=== PATIENT | female | born 1990 | race Caucasian/White ===

== ENCOUNTER 2018-05-10 13:30 | Emergency (ER) | payer BC, OTHER ==
[~2018-05-10] VITALS: Ht 180.3 cm; Wt 60.8 kg
[2018-05-10] MEDS ORDERED: NS IV 1000 ML 1,000 ML ONE (14:20)
[2018-05-10 14:30] LABS: BASOPHILS % (AUTO) 1 % (0-10); EOSINOPHILS % (AUTO) 1 % (0-10); HEMATOCRIT 42 % (35-52); HEMOGLOBIN 13.3 G/DL (11.5-16.0); LYMPHOCYTES # (AUTO) 2.2 X 10^3 (1.0-4.0); LYMPHOCYTES % (AUTO) 33 % (12-44); MEAN CORPUSCULAR HEMOGLOBIN 27 PG (25-34); MEAN CORPUSCULAR HGB CONC 32 G/DL (32-36); MEAN CORPUSCULAR VOLUME 83 FL (80-99); MEAN PLATELET VOLUME 9.6 FL (7.4-10.4); MONOCYTES # (AUTO) 0.6 X 10^3 (0.0-1.0); MONOCYTES % (AUTO) 8 % (0-12); NEUTROPHILS % (AUTO) 58 % (42-75); PLATELET COUNT 273 10^3/uL (130-400); RED BLOOD COUNT 4.99 10^6/uL (4.35-5.85); RED CELL DISTRIBUTION WIDTH 14.7 % (10.0-14.5); WHITE BLOOD COUNT 6.9 10^3/uL (4.3-11.0)
[2018-05-10] MEDS ORDERED: NS IV 1000 ML 1,000 ML IV SCH (14:30)
[2018-05-10 14:32] LABS: BILIRUBIN,URINE NEGATIVE (NEGATIVE); CLARITY,URINE CLEAR; COLOR,URINE YELLOW; GLUCOSE, URINE (UA) NEGATIVE (NEGATIVE); KETONES,URINE NEGATIVE (NEGATIVE); LEUKOCYTE ESTERASE ,URINE NEGATIVE (NEGATIVE); NITRITE,URINE NEGATIVE (NEGATIVE); PH,URINE 6 (5-9); PROTEIN,URINE NEGATIVE (NEGATIVE); UROBILINOGEN,URINE NORMAL (NORMAL)
[2018-05-10] MEDS ORDERED: PNV1TABL81 PO (14:36)
[2018-05-10] MEDS ORDERED: fentaNYL INJECTION 100 MCG/2 ML AMP IVP STA (14:38)
[2018-05-10 14:40] LABS: BACTERIA,URINE NEGATIVE /HPF; RBC,URINE 0-2 /HPF; SQUAMOUS EPITHELIAL CELL,UR 0-2 /HPF
[2018-05-10 14:52] LABS: ALANINE AMINOTRANSFERASE 19 U/L (0-55); ALBUMIN 4.9 GM/DL (3.2-4.5); ALKALINE PHOSPHATASE 41 U/L (40-136); BILIRUBIN,TOTAL 0.7 MG/DL (0.1-1.0); BUN/CREATININE RATIO 8; CALCIUM 9.8 MG/DL (8.5-10.1); CARBON DIOXIDE 24 MMOL/L (21-32); CHLORIDE 107 MMOL/L (98-107); CREATININE SERUM 0.78 MG/DL (0.60-1.30); GFR ESTIMATED > 60; GLUCOSE 82 MG/DL (70-105); POTASSIUM 3.6 MMOL/L (3.6-5.0); SODIUM 140 MMOL/L (135-145); TOTAL PROTEIN 8.7 GM/DL (6.4-8.2)
--- NOTE | 2018-05-10 15:14 | ED GU-Female ---
General Chief Complaint: -Female Stated Complaint: POSS MISCARRIAGE Nursing Triage Note: AMBULATED TO ROOM VIA AMB WITHOUT DIFFICULTY. STATES SHE HAS HAD SOME SPOTTING AND ABD CRAMPING STARTING YESTERDAY. STATES SHE IS -6 WEEKS GESTATION. Nursing Sepsis Screen: No Definite Risk Source: patient Exam Limitations: no limitations History of Present Illness Date Seen by Provider: May 10, 2018 Time Seen by Provider: 14:25 Initial Comments Here with report of vaginal bleeding starting yesterday. She has been through 1 pad today. Believes that she is about 6 weeks due to missed. At the end of March. She had positive test on April 28. This is her first . She arrives with no significant cramping that she has never experienced before. Mild bleeding. Denies vaginal discharge. Previously had IUD and have that removed in the February. noted at the end of March. Timing/Duration: yesterday, getting worse Severity/Quality: moderate, cramping Location: suprapubic, vaginal Radiation: RLQ, LLQ, back Activities at Onset: none Prior Genitourinary Problems: none Sexual Garnett History: less than 2 months ago Modifying Factors: Worsens With Resting Associated Symptoms: abdominal pain; No fever/chills, No nausea/vomiting, No urinary frequency Allergies and Home Medications Allergies Coded Allergies: No Known Drug Allergies (Unverified , 05/10/18) Patient Home Medication List Home Medication List Reviewed: Yes Review of Systems Constitutional: see HPI; No chills, No fever Respiratory: no symptoms reported Cardiovascular: no symptoms reported Gastrointestinal: see HPI, abdominal pain; No nausea, No vomiting Genitourinary: see HPI : Yes LMP: Mar 25, 2018 Musculoskeletal: no symptoms reported Psychiatric/Neurological: Anxiety; Denies Weakness Past Upykwdz-Tiivgl-Umssyn Hx Past Med/Social Hx: Reviewed Nursing Past Med/Soc Hx Patient Social History Alcohol Use: Denies Use Recreational Drug Use: No Smoking Status: Never a Smoker Recent Foreign Travel: No Contact w/Someone Who Travel: No Recent Infectious Disease Expo: No Recent Hopitalizations: No Past Medical History Surgeries: Yes (HERNIA) Respiratory: No Cardiac: No Neurological: No : Yes Last Menstrual Period: Mar 23, 2018 Gastrointestinal: No Musculoskeletal: No Endocrine: No HEENT: No Cancer: No Psychosocial: No Family Medical History Reviewed Nursing Family Hx Physical Exam Vital Signs Vital Signs - First Documented 05/10/18 14:28 Temp 98.0 Pulse 59 Resp 16 B/P (MAP) 126/86 (99) Pulse Ox 100 O2 Delivery Room Air Capillary Refill : Less Than 3 Seconds Height, Weight, BMI Height: 5'11.00" Weight: 134lbs. oz. 60.880493bd; BMI Method:Stated General Appearance: WD/WN, no apparent distress HEENT: PERRL/EOMI, pharynx normal Neck: full range of motion, supple Cardiovascular: regular rate, rhythm, no murmur, bradycardia Respiratory: lungs clear, normal breath sounds Gastrointestinal: soft, tenderness (lower abdomen) Back: normal inspection, no CVA tenderness, no vertebral tenderness Extremities: non-tender, normal inspection Neurologic/Psychiatric: alert, oriented x 3 Skin: normal color, warm/dry Progress/Results/Core Measures Suspected Sepsis Recent Fever Within 48 Hours: No Infection Criteria Present: None New/Unexplained Altered Menta: No Sepsis Screen: No Definite Risk SIRS Temperature:98.0 Pulse: 59 Respiratory Rate: 16 Laboratory Tests 05/10/18 14:15: White Blood Count 6.9 Blood Pressure 126 /86 Mean: 99 Laboratory Tests 05/10/18 14:15: Creatinine 0.78, Platelet Count 273, Total Bilirubin 0.7 Results/Orders Lab Results Laboratory Tests Test 05/10/18 14:10 05/10/18 14:15 Range/Units Urine Color YELLOW Urine Clarity CLEAR Urine pH 6 5-9 Urine Specific [place] 1.010 L 1.016-1.022 Urine Protein NEGATIVE NEGATIVE Urine Glucose (UA) NEGATIVE NEGATIVE Urine Ketones NEGATIVE NEGATIVE Urine Nitrite NEGATIVE NEGATIVE Urine Bilirubin NEGATIVE NEGATIVE Urine Urobilinogen NORMAL NORMAL MG/DL Urine Leukocyte Esterase NEGATIVE NEGATIVE Urine RBC (Auto) 5+ H NEGATIVE Urine RBC 0-2 /HPF Urine WBC NONE /HPF Urine Squamous Epithelial Cells 0-2 /HPF Urine Crystals NONE /LPF Urine Bacteria NEGATIVE /HPF Urine Casts NONE /LPF Urine Mucus NEGATIVE /LPF Urine Culture Indicated NO White Blood Count 6.9 4.3-11.0 10^3/uL Red Blood Count 4.99 4.35-5.85 10^6/uL Hemoglobin 13.3 11.5-16.0 G/DL Hematocrit 42 35-52 % Mean Corpuscular Volume 83 80-99 FL Mean Corpuscular Hemoglobin 27 25-34 PG Mean Corpuscular Hemoglobin Concent 32 32-36 G/DL Red Cell Distribution Width 14.7 H 10.0-14.5 % Platelet Count 273 130-400 10^3/uL Mean Platelet Volume 9.6 7.4-10.4 FL Neutrophils (%) (Auto) 58 42-75 % Lymphocytes (%) (Auto) 33 12-44 % Monocytes (%) (Auto) 8 0-12 % Eosinophils (%) (Auto) 1 0-10 % Basophils (%) (Auto) 1 0-10 % Neutrophils # (Auto) 4.0 1.8-7.8 X 10^3 Lymphocytes # (Auto) 2.2 1.0-4.0 X 10^3 Monocytes # (Auto) 0.6 0.0-1.0 X 10^3 Eosinophils # (Auto) 0.0 0.0-0.3 10^3/uL Basophils # (Auto) 0.0 0.0-0.1 10^3/uL Sodium Level 140 135-145 MMOL/L Potassium Level 3.6 3.6-5.0 MMOL/L Chloride Level 107 98-107 MMOL/L Carbon Dioxide Level 24 21-32 MMOL/L Anion Gap 9 5-14 MMOL/L Blood Urea Nitrogen 6 L 7-18 MG/DL Creatinine 0.78 0.60-1.30 MG/DL Estimat Glomerular Filtration Rate > 60 BUN/Creatinine Ratio 8 Glucose Level 82 70-105 MG/DL Calcium Level 9.8 8.5-10.1 MG/DL Corrected Calcium 8.5-10.1 MG/DL Total Bilirubin 0.7 0.1-1.0 MG/DL Aspartate Amino Transf (AST/SGOT) 20 5-34 U/L Alanine Aminotransferase (ALT/SGPT) 19 0-55 U/L Alkaline Phosphatase 41 40-136 U/L Total Protein 8.7 H 6.4-8.2 GM/DL Albumin 4.9 H 3.2-4.5 GM/DL Human Chorionic Gonadotropin, Quant 470 H <5 MIU/ML My Orders Orders - JENNIFER CERON MD Iv 1000 Ml (Sodium Chloride 0.9%) (05/10/18 14:20) Fentanyl Injection (Sublimaze Injection (05/10/18 14:38) Vital Signs/I&O 05/10/18 14:28 Temp 98.0 Pulse 59 Resp 16 B/P (MAP) 126/86 (99) Pulse Ox 100 O2 Delivery Room Air Capillary Refill : Less Than 3 Seconds Blood Pressure Mean: 99 Progress Note : Progress Note Seen and evaluated. IV, labs, ultrasound pelvis ordered. Normal saline 1 L bolus as patient became hypotensive with IV start. Fentanyl 50 g IV ordered. This did significantly help with her pain. Ultrasound complete. 1540: I have discussed the results with the patient. This is likely miscarriage given the amount of bleeding and tissue that she's had that she is describing now. She will need follow-up and this was discussed with her. She will need repeat Quant level to ensure that the clot level was going down. I will send a copy of the chart to Dr. Chowdhury. Go pack of hydrocodone given. Discharged home with return precautions. Patient and family verbalize understanding instructions and agreement with plan. Diagnostic Imaging Diagonstic Imaging: Ultrasound Plain Films/CT/US/NM/MRI: pelvis Comments NAME: NIMCO CHAN [facility] REC#: [id number] PT STATUS: REG ER : 1990 PHYSICIAN: KENJI MICHAELS GASKET FORMER ADMIT DATE: 05/10/18/ER Signed Date of Exam: 05/10/18 US OB TRANSVAGINAL [id number] INDICATION: Vaginal bleeding, pelvic pain, cramping. COMPARISON: None. EXAMINATION: Transvaginal ultrasound images were obtained. FINDINGS: The shape and contour of the uterus appears normal. The endometrium is 9 mm. There is no intrauterine or extrauterine gestation. The right ovary measures 21 x 29 x 34 mm, the left 22 x 18 x 18 mm. There is no suspicious mass or cyst. There is no free fluid. IMPRESSION: 1. No intrauterine or extrauterine gestation. If the patient has a positive test please exclude ectopic on a clinical basis. Obtain followup. 2. No adnexal mass or free fluid. Dictated by: Dictated on workstation # [id number] Dict: 05/10/18 1512 Trans: 05/10/18 1520 Interpreted by: KHOI ORTIZ Electronically signed by: KHOI ORTIZ 05/10/18 1520 Departure Impression Primary Impression: Spontaneous miscarriage Disposition: 01 HOME, SELF-CARE Condition: Stable Departure-Patient Inst. Decision time for Depature: 15:46 Referrals: MACO CHOWDHURY MD Patient Instructions: Miscarriage (DC) Add. Discharge Instructions: All discharge instructions reviewed with patient and/or family. Voiced understanding. You may take ibuprofen 600 mg every 8 hours as needed for pain. Take other pain medicine as prescribed. You may take Tylenol/acetaminophen 1000 mg every 8 hours as needed for pain if you're not taking the prescribed pain medicine. Do not take both at the same time as they both have acetaminophen in them. Follow-up with Dr. Chowdhury in a few days for recheck. Call his office in the morning. You will need repeat beta hCG level in 2-3 days. Return for worse pain, fever, vomiting, weakness, breathing problems or other concerns as needed. Copy Copies To 1: MACO CHOWDHURY MD, TIMOTHY D MD May 10, 2018 15:14
--- NOTE | 2018-05-10 15:19 | Diagnostic Imaging Report ---
INDICATION: Vaginal bleeding, pelvic pain, cramping. COMPARISON: None. EXAMINATION: Transvaginal ultrasound images were obtained. FINDINGS: The shape and contour of the uterus appears normal. The endometrium is 9 mm. There is no intrauterine or extrauterine gestation. The right ovary measures 21 x 29 x 34 mm, the left 22 x 18 x 18 mm. There is no suspicious mass or cyst. There is no free fluid. IMPRESSION: 1. No intrauterine or extrauterine gestation. If the patient has a positive test please exclude ectopic on a clinical basis. Obtain followup. 2. No adnexal mass or free fluid. Dictated by: Dictated on workstation # [id number]
[2018-05-10] MEDS ORDERED: RX-HYDROCODONE/APAP 5/325 MG #4 TAB PK PO PRN (16:00)
[2018-05-10 16:10] VITALS: BP 114/76
== END 2018-05-10 16:10 | disposition home or self-care (01) ==
LOC: ER 13:32
DX: O03.9 Complete or unspecified spontaneous abortion without complication (principal); Z98.890 Other specified postprocedural states
CPT/HCPCS: 36415; 76817; 80053; 81000; 84702; 85025; 86900; 86901

== ENCOUNTER → 2019-01-13 | Outpatient (CLI) | payer BC ==
[~2019-01-13] MED LIST: PNV1TABL81 PO
--- NOTE | 2019-01-14 15:12 | Physician Query-Final Dx ---
SARMAD HOGUE 01/14/19 1512: Clinic Account Progress/Dx Physician Query: Please give diagnosis Stool culture Date of Service Jan 13, 2019 at 15:44 MACO AC MD 01/15/19 0744: Clinic Account Progress/Dx DIAGNOSIS: Diagnosis Chronic diarrhea SARMAD HOGUE Jan 14, 2019 15:12 MACO AC MD Jan 15, 2019 07:44
== END ==
LOC: LAB 15:44
PROVIDERS: ATTEND Obstetrics & Gynecology
DX: K52.9 Noninfective gastroenteritis and colitis, unspecified (principal)
CPT/HCPCS: 87015; 87045; 87046; 87328; 87329; 87899

== ENCOUNTER 2019-07-30 09:39 | Inpatient (IN) | payer BC ==
[~2019-07-30] VITALS: Ht 180.3 cm; Wt 80.1 kg
[2019-07-30] VITALS (7 sets, daily range): BP systolic 89–123; BP diastolic 60–98
--- NOTE | 2019-07-30 09:31 | NUR ---
NIMCO CHAN presented to unit via ambulatory from dr lafleur's office, accompanied by , for PRIMARY . Per Dr lafleur, Pt is dilated 5 cm and breech presentation. NIMCO CHAN weighed, gowned, voided, and to bed. EFHM and TOCO applied, VS taken. NIMCO CHAN oriented to bed controls, call light, TV, heat, and A/C controls. This RN prepares pt for surgery.
[2019-07-30] MEDS ORDERED: CITRIC ACID/SOB CIT (BICITRA) 30 ML UDC PO ONE ×2 (10:00→11:45)
[2019-07-30] MEDS ORDERED: metroNIDAZOLE 500MG/100ML IVPB 100 ML IV NR ×2 (10:00→12:00)
[2019-07-30] MEDS ORDERED: CATHETER FLUSH 10 ML SYR IV PRN (10:00)
[2019-07-30] MEDS ORDERED: ceFAZolin 2 GM IV Premixed 50 ML IV NR ×2 (10:00→12:00)
[2019-07-30] MEDS ORDERED: FAMOTIDINE 20MG/2ML IV (PEPCID) IV ONE ×2 (10:00→11:45)
[2019-07-30] MEDS: LACTATED RINGERS 1,000 ML IV PRN ×2 (10:00→11:09)
[2019-07-30] MEDS ORDERED: METOCLOPRAMIDE INJ 10 MG/2 ML (REGLAN) IV ONE ×2 (10:00→11:45)
[2019-07-30 10:44] LABS: BASOPHILS % (AUTO) 0 % (0-10); EOSINOPHILS % (AUTO) 0 % (0-10); HEMATOCRIT 36 % (35-52); HEMOGLOBIN 12.2 G/DL (11.5-16.0); LYMPHOCYTES # (AUTO) 1.3 X 10^3 (1.0-4.0); LYMPHOCYTES % (AUTO) 14 % (12-44); MEAN CORPUSCULAR HEMOGLOBIN 31 PG (25-34); MEAN CORPUSCULAR HGB CONC 34 G/DL (32-36); MEAN CORPUSCULAR VOLUME 90 FL (80-99); MEAN PLATELET VOLUME 9.8 FL (7.4-10.4); MONOCYTES # (AUTO) 0.7 X 10^3 (0.0-1.0); MONOCYTES % (AUTO) 7 % (0-12); NEUTROPHILS # (AUTO) 7.4 X 10^3 (1.8-7.8); NEUTROPHILS % (AUTO) 78 % (42-75); PLATELET COUNT 274 10^3/uL (130-400); RED CELL DISTRIBUTION WIDTH 12.9 % (10.0-14.5); WHITE BLOOD COUNT 9.4 10^3/uL (4.3-11.0)
[2019-07-30] MEDS ORDERED: LACTATED RINGERS 1,000 ML IV SCH ×2 (11:40)
[2019-07-30] MEDS ORDERED: D5 LR IV SOLUTION 1,000 ML IV SCH ×2 (11:50→11:52)
[2019-07-30] MEDS ORDERED: OXYTOCIN/NORMAL SALINE 500 ML IV SCH (11:52)
[2019-07-30] MEDS ORDERED: IBUP-1780 PO (11:56)
[2019-07-30] MEDS ORDERED: DOCU100C37 PO (11:56)
[2019-07-30] MEDS ORDERED: OXYC1TAB12 PO (11:56)
--- NOTE | 2019-07-30 11:57 | Discharge Instructions ---
Discharge Instructions Discharge Medications New, Converted or Re-Newed RX: RX on Chart Patient Instructions Return to The Hospital For: as directed Activity & Diet Discharge Diet: No Restrictions Activity as Tolerated: No Orders-Post D/C & Referrals Follow Up Appt: RTC 1 week for incision check. Call to make follow up appt. for patient in 4 weeks. Wound Care: Remove german, apply benzoin and steri strips. Activity Per routine post instructions. Please call in RX to patient pharmacy. Diet as tolerated Patient may shower or tub bathe as desired. Continue home meds MACO AC MD Jul 30, 2019 11:57 POS
[2019-07-30] MEDS ORDERED: oxyCODONE/APAP 10/325MG (PERCOCET 10) TABLET PO PRN (12:00)
[2019-07-30] MEDS ORDERED: ONDANSETRON 4 MG/2 ML (SDV) Z0FRAN IVP PRN (12:00)
[2019-07-30] MEDS ORDERED: TETANUS,DIPTH,PERTUSS P/F (BOOSTRIX) 0.5 ML VIAL IM ONE (12:00)
[2019-07-30] MEDS ORDERED: MEASLES,MUMPS,RUBELLA 1 EA INJ SC ONE (12:00)
--- NOTE | 2019-07-30 12:00 | History & Physical ---
History and Physical Date Seen by Provider: Jul 30, 2019 Time Seen by Provider: 12:45 This patient is a 29-year-old A1 white female who is currently at 37-1/7 weeks gestation. She was seen in clinic on this date found to be 5 cm dilated 70 percent effaced -1 station with a bulging bag into the vagina and a double footling breech presentation. Her has been uncomplicated. Her GBS culture was reported as negative. She denies rupture membranes or bleeding. She was admitted for management including primary delivery due to breech presentation. Allergies are none Medications are vitamins and graft medical social and surgical histories are per the antepartum record HEENT exam is normal Neck is supple no lymphadenopathy no thyromegaly Abdomen is gravid soft nontender nondistended Extremities show no clubbing or cyanosis. There is no Homans sign. Pelvic exam in clinic showed a cervix 5+ cm. dilated 70 percent effaced and 0+1 station bulging bag into the vagina and double footling breech presentation. Bedside ultrasound confirmed presentation. Assessment and plan term at 37-1/7 weeks gestation in labor with double footling breech presentation. Plan is for primary delivery. Surgical risk complication recovering follow-up have been fully discussed. 37 weeks in labor with breech presentation Allergies and Home Medications Allergies Coded Allergies: No Known Drug Allergies (Unverified , 05/10/18) Home Medications Docusate Sodium 100 Mg Capsule, 100 MG PO BID Prescribed by: MACO VINES on 07/30/19 1156 Ibuprofen 800 Mg Tablet, 800 MG PO Q6HR Prescribed by: MACO VINES on 07/30/19 1156 Oxycodone HCl/Acetaminophen 1 Each Tablet, 1 TAB PO Q4HR PRN for PAINMODS Prescribed by: MACO VINES on 07/30/19 1156 Patient Home Medication List Home Medication List Reviewed: Yes Clinical Quality Measures DVT/VTE Risk/Contraindication: Risk Factor Score Per Nursin RFS Level Per Nursing on Admit: 1=Low/No VTE PPX MACO AC MD Jul 30, 2019 12:00 POS
[2019-07-30] MEDS ORDERED: fentaNYL INJECTION 100 MCG/2 ML AMP ONE (12:23)
[2019-07-30] MEDS ORDERED: BUPIVACAINE 0.5% 30 ML (SENSORCAINE) VIAL ONE ×2 (12:49)
[2019-07-30] MEDS ORDERED: KETAMINE/NaCl 50 MG/5 ML SYRINGE (ED ONLY) ONE (13:12)
[2019-07-30] MEDS ORDERED: KETOROLAC 30 MG/ML VIAL ONE (13:58)
--- NOTE | 2019-07-30 15:10 | NUR ---
PT TO ROOM 3308 FOR CARE AFTER C/S, VSS, NO DISTRESS NOTED, FFU/3 LT LOCHIA NOTED, INFANT WITH LATCH ON ASSIST, PTS S/O AT SIDE, PLAN OF CARE EXPLAINED WILL MONITOR CLOSELY.
--- NOTE | 2019-07-30 20:05 | NUR ---
To pts room. Assessments done. IVF changed and IV toradol given. Assisted pt to bathroom. Up out of bed and ambulated well to bathroom. Voided 700cc clear yellow urine. No complaints of burning. Minimal vaginal bleeding noted. Cleaned up and new pads in place. Back to bed. SCD's on. No other needs at this time.
[2019-07-30] MEDS: KETOROLAC 30 MG/ML VIAL IVP PRN (20:27)
[2019-07-30] MEDS ORDERED: DOCUSATE SODIUM 100 MG (COLACE) CAP PO SCH (21:00)
--- NOTE | 2019-07-30 22:00 | NUR ---
RT notified of IS needed for pt
[2019-07-30] MEDS: DOCUSATE SODIUM 100 MG (COLACE) CAP PO SCH (22:32)
[2019-07-30] MEDS: oxyCODONE/APAP 10/325MG (PERCOCET 10) TABLET PO PRN (22:32)
--- NOTE | 2019-07-31 00:08 | OPERATIVE REPORT ---
DATE OF SERVICE: 07/30/2019 DELIVERY/OPERATIVE NOTE PREOPERATIVE DIAGNOSES: Term at 37 weeks gestation and labor with breech presentation. POSTOPERATIVE DIAGNOSIS: Term at 37 weeks gestation and labor with breech presentation. OPERATIVE PROCEDURE: Primary low transverse delivery of a viable female with Apgars of 8 and 8 at 1 and 5 minutes respectively, weight 7 pounds 10 ounces. time of 1340 and a cord blood pH that is pending. OPERATIVE DESCRIPTION: With the patient in supine position under satisfactory spinal analgesia, she was prepped and draped in usual fashion for abdominal surgery. Escobar catheter was placed in the urinary bladder. A Pfannenstiel incision made through the skin with scalpel, the patient's abdomen entered in the usual manner. Bladder retractor placed in position, clean scalpel used to make a 4 cm hysterotomy incision transversely across the lower uterine segment. Copious clear fluid was released on hysterotomy. A vigorous viable female infant was delivered from a deuce breech position/presentation. The was delivered, buttocks first and up to the chest where the knees could not be flexed and the legs delivered and then delivery was completed down to the shoulders where the arms were swept out and then Namvlxbus-Qytdfai-Rwav maneuver was used to deliver the after coming head. The delivery was atraumatic. The infant was bulb suctioned on delivery. Umbilical cord was doubly clamped and cut and the infant passed to the pediatric nurse in attendance for delivery. Cord bloods were obtained. The placenta delivered spontaneously [place]. It was normal with a 3-vessel cord. The uterus was exteriorized and interior wiped clean with a wet laparotomy sponge. Uterine incision closed with a running locked suture of 2-0 Vicryl. Hemostasis was complete. The uterus was returned to the abdominal cavity. All blood clot and debris removed from the abdominal cavity. Sponge and needle counts correct, hemostasis assured. The anterior parietal peritoneum was closed with running suture of 2-0 Vicryl. Rectus muscles were closed with that suture. Rectus fascia was closed with 2-0 Vicryl, subcutaneous tissue with 2-0 Vicryl and the skin was stapled. There was a 4 mm darkly pigmented exophytic lesion in the patient's right groin that she had asked to have removed, that was elevated and then removed sharply using Metzenbaum scissors. The defect was touched with silver nitrate to effect hemostasis. That piece of tissue was sent to pathology as right groin pigmented lesion. Sponge and needle counts were correct. Estimated blood loss was around 400 mL. The patient tolerated the delivery well and was transferred to the recovery room. The baby remained in the area with the mom. Job ID: [id number] DocumentID: [id number] Dictated Date: 07/30/2019 14:03:46 Histological Illustrator Date: 07/31/2019 00:07:53 Dictated By: MACO AC MD
--- NOTE | 2019-07-31 02:00 | NUR ---
Assisted pt to bathroom. Voided without difficulty. Scant amount of vag bleeding noted. Back to bed. SCD's back on.
[2019-07-31 02:41] VITALS: BP 103/70
[2019-07-31] MEDS: KETOROLAC 30 MG/ML VIAL IVP PRN (02:41)
[2019-07-31] MEDS: oxyCODONE/APAP 10/325MG (PERCOCET 10) TABLET PO PRN ×4 (02:52→16:34)
--- NOTE | 2019-07-31 03:04 | NUR ---
Report given to Erna SÁNCHEZ
[2019-07-31 05:17] VITALS: BP 115/65
--- NOTE | 2019-07-31 08:02 | NUR ---
DR. AC TO PT'S BEDSIDE.
--- NOTE | 2019-07-31 08:11 | Progress Note ---
Standard Progress Note Progress Notes/Assess & Plan Date Seen by a Provider: Jul 31, 2019 Time Seen by a Provider: 08:10 Progress/Assessment & Plan This patient is without complaint. She is ambulating, voiding, tolerating oral intake well and has good pain control. Patient denies chest pain, denies shortness of breath, denies nausea vomiting, denies headache. Vital Signs Date Time Temp Pulse Resp B/P (MAP) Pulse Ox O2 Delivery O2 Flow Rate FiO2 07/31/19 05:17 36.6 72 18 115/65 (82) 99 07/31/19 02:41 36.8 60 18 103/70 (81) 98 07/30/19 23:36 Room Air 07/30/19 22:32 36.7 75 20 102/60 (74) 99 07/30/19 17:51 36.8 55 18 118/74 (89) 98 Room Air 07/30/19 14:59 36.6 89/76 (80) 100 Room Air 07/30/19 14:59 Room Air 07/30/19 14:50 36.6 123/90 (101) 100 Room Air 07/30/19 14:50 Room Air 07/30/19 14:35 36.7 102/71 (81) 100 Room Air 07/30/19 14:35 Room Air 07/30/19 14:10 Room Air 07/30/19 14:10 36.4 110/98 (102) 100 Room Air 07/30/19 09:45 37.4 71 16 99 Room Air I & O 07/31/19 07:00 Intake Total 7720 ml Output Total 3700 ml Balance 4020 ml Vital signs are stable. Patient is afebrile. The fundus is firm below the umbilicus and nontender. Incision is clean dry and intact. Extremities show no clubbing or cyanosis. There is no Homans sign. Assessment and plan postoperative day number 1 status post primary delivery at 37 weeks gestation secondary to breech presentation in labor. Patient is doing well and will have routine convalescence care MACO AC MD Jul 31, 2019 08:11 POS
--- NOTE | 2019-07-31 08:15 | NUR ---
PT ASSISTED IN SITTING UP FOR BREAKFAST PER REQUEST. TO NURSERY FOR AM CARE. WILL RETURN SHORTLY FOR VS, ASSESSMENT AND MEDS; PT VERBALIZES UNDERSTANDING AND DENIES ANY FURTHER NEEDS AT THIS TIME.
[2019-07-31] MEDS ORDERED: IBUPROFEN 800 MG (MOTRIN) TAB PO ONE (09:00)
[2019-07-31 09:03] VITALS: BP 108/61
[2019-07-31] MEDS: DOCUSATE SODIUM 100 MG (COLACE) CAP PO SCH ×2 (09:05→21:04)
[2019-07-31] MEDS: IBUPROFEN 800 MG (MOTRIN) TAB PO SCH ×3 (09:05→21:04)
--- NOTE | 2019-07-31 09:10 | NUR ---
PT IN BED, HOLDING , REQUESTING PAIN MEDICATION. VS OBTAINED. MEDS GIVEN PO; SEE EMAR FOR FURTHER. INITIAL SHIFT ASSESSMENT COMPLETED; SEE INTERVENTION. FRESH ICE WATER AND LANOLIN PROVIDED. SHOWER SET UP. POC REVIEWED WITH PT, PT VERBALIZES UNDERSTANDING AND DENIES ANY FURTHER NEEDS OR QUESTIONS AT THIS TIME. CALL LIGHT WITHIN REACH.
--- NOTE | 2019-07-31 13:20 | NUR ---
PT PREPPING TO TAKE A SHOWER. WILL RETURN LATER FOR VS. PT'S MOTHER AND INFANT AT THE BEDSIDE.
[2019-07-31 15:15] VITALS: BP 112/77
--- NOTE | 2019-07-31 15:15 | NUR ---
ibuprofen 800 mg p.o. pt rates pain level at 4 on 1/10 scale. abd binder placed per patients request.
--- NOTE | 2019-07-31 16:34 | NUR ---
percocet 10/325 mg 1 tab p.o for c/o's abd pain. rates pain level at 5 on 1/10 scale. encouraged pt to ambulate in diaz to relieve gas pain. abd binder in place. mother ambulating with pt in hallway.
[2019-07-31 21:04] VITALS: BP 104/69
--- NOTE | 2019-08-01 02:00 | NUR ---
Daylight savings, lose an hour.
[2019-08-01 02:06] VITALS: BP 106/68
[2019-08-01] MEDS: IBUPROFEN 800 MG (MOTRIN) TAB PO SCH ×3 (02:07→15:06)
--- NOTE | 2019-08-01 08:23 | NUR ---
Dr Chowdhuyr to see patient and review plan of care.
--- NOTE | 2019-08-01 08:25 | Progress Note ---
Standard Progress Note Progress Notes/Assess & Plan Date Seen by a Provider: Aug 01, 2019 Time Seen by a Provider: 08:24 Progress/Assessment & Plan This patient is without complaint. She is ambulating, voiding, tolerating oral intake well and has good pain control. Patient denies chest pain, denies shortness of breath, denies nausea vomiting, denies headache. Vital Signs Date Time Temp Pulse Resp B/P (MAP) Pulse Ox O2 Delivery O2 Flow Rate FiO2 07/31/19 05:17 36.6 72 18 115/65 (82) 99 07/31/19 02:41 36.8 60 18 103/70 (81) 98 07/30/19 23:36 Room Air 07/30/19 22:32 36.7 75 20 102/60 (74) 99 07/30/19 17:51 36.8 55 18 118/74 (89) 98 Room Air 07/30/19 14:59 36.6 89/76 (80) 100 Room Air 07/30/19 14:59 Room Air 07/30/19 14:50 36.6 123/90 (101) 100 Room Air 07/30/19 14:50 Room Air 07/30/19 14:35 36.7 102/71 (81) 100 Room Air 07/30/19 14:35 Room Air 07/30/19 14:10 Room Air 07/30/19 14:10 36.4 110/98 (102) 100 Room Air 07/30/19 09:45 37.4 71 16 99 Room Air I & O 07/31/19 07:00 Intake Total 7720 ml Output Total 3700 ml Balance 4020 ml Vital signs are stable. Patient is afebrile. The fundus is firm below the umbilicus and nontender. Incision is clean dry and intact. Extremities show no clubbing or cyanosis. There is no Homans sign. Assessment and plan postoperative day number 1 status post primary delivery at 37 weeks gestation secondary to breech presentation in labor. Patient is doing well and will have routine convalescence care August 01, 2019 Patient is without complaint. She is ablating, voiding, tolerating oral intake well has good pain control. Patient is requesting discharge home. Vital Signs Date Time Temp Pulse Resp B/P (MAP) Pulse Ox O2 Delivery O2 Flow Rate FiO2 08/01/19 02:06 37.1 70 18 106/68 (81) 97 Room Air 07/31/19 21:04 37.0 64 18 104/69 (81) 98 Room Air 07/31/19 15:15 36.8 73 18 112/77 (89) 98 Room Air 07/31/19 09:03 36.9 63 18 108/61 (77) 97 Room Air Vital signs are stable. Patient is afebrile. Fundus is firm below the umbilicus and nontender. Extremities show no clubbing cyanosis. There is no Homans sign. Assessment and plan postoperative day number 2 status post primary delivery at 37 weeks gestation. Patient is ready for discharge home will be followed up in clinic. Final Diagnosis 37 week primary delivery for breech presentation in labor MACO AC MD Aug 01, 2019 08:25 POS
--- NOTE | 2019-08-01 09:14 | NUR ---
pt ambulating in halls accompanied by mother.
[2019-08-01 09:22] VITALS: BP 113/66
[2019-08-01] MEDS: DOCUSATE SODIUM 100 MG (COLACE) CAP PO SCH (09:46)
[2019-08-01] MEDS ORDERED: MEASLES,MUMPS,RUBELLA 1 EA INJ ONE (13:19)
--- NOTE | 2019-08-01 13:58 | Anesthesia-Regional Post-Op ---
Regional Patient Condition Mental Status: Alert, Oriented x3 Circulation: Same as Pre-Op Headache: Absent Sensation: Full Recovery Motor Block: Absent Post Op Complications Complications None Follow Up Care/Instructions Patient Instructions None needed. Anesthesia/Patient Condition Patient is doing well, no complaints, stable vital signs, no apparent adverse anesthesia problems. No complications reported per nursing. GERMANIA CORLEY CRNA Aug 01, 2019 13:58 POS
[2019-08-01 15:09] VITALS: BP 110/69
--- NOTE | 2019-08-01 15:35 | NUR ---
Jigar out, benzoin and steri strips applied. Addendum: 08/01/19 at 1548 by MICKY HINTON RN noted skin tear 3cm to right lower hip back area, skin intact, no drainage. bandaid to cover area.
--- NOTE | 2019-08-01 15:55 | NUR ---
Discharge instructions explained, signed and copy to patient. pt verbalized understanding of instructions and denied questions at this time.
--- NOTE | 2019-08-01 17:25 | NUR ---
Discharged to home. Downstairs in wheelchair per staff. Accompanied by and mother.
[2019-08-04] MEDS ORDERED: IBUPROFEN 800 MG (MOTRIN) TAB PO SCH (12:00)
== END 2019-08-01 17:25 | disposition home or self-care (01) | DRG 788 ==
LOC: LDRP 09:39
PROVIDERS: ADMIT Obstetrics & Gynecology; ATTEND Obstetrics & Gynecology
PROC: 0HB7XZX Excision of Abdomen Skin, External Approach, Diagnostic (ICD-10-PCS; 2019-07-30)
PROC: 10D00Z1 Extraction of Products of Conception, Low, Open Approach (ICD-10-PCS; principal; 2019-07-30 13:13)
DX: O32.1XX0 Maternal care for breech presentation, not applicable or unspecified (principal); O99.72 Diseases of the skin and subcutaneous tissue complicating childbirth; L81.9 Disorder of pigmentation, unspecified; Z3A.37 37 weeks gestation of pregnancy; Z37.0 Single live birth; Z23 Encounter for immunization
CPT/HCPCS: 36415; 85025; 86850; 86900; 86901; 90707; 94664

== ENCOUNTER 2020-01-22 15:37 | Outpatient (RCR) | payer BC ==
[~2020-01-22] VITALS: Ht 180.3 cm; Wt 68.2 kg
[~2020-01-22 15:37] MED LIST changes: +DOCU100C37 PO; +IBUP-1780 PO; +OXYC1TAB12 PO
[2020-01-22 15:45] VITALS: BP 0/0
[2020-01-23 16:00] VITALS: BP 0/0
== END 2020-01-23 16:10 | disposition home or self-care (01) ==
LOC: 4TH RCR 15:37
PROVIDERS: ATTEND Nurse Practitioner Family
DX: L03.221 Cellulitis of neck (principal)
CPT/HCPCS: 99212

== ENCOUNTER 2020-01-25 06:53 | Outpatient (CLI) | payer BC ==
[~2020-01-25] VITALS: Ht 180 cm; Wt 68.0 kg
[2020-01-25] MEDS ORDERED: NORE0.3520 PO (09:21)
== END 2020-01-25 12:09 | disposition home or self-care (01) ==
LOC: PREOP 06:53
PROVIDERS: ATTEND Surgery
DX: Z01.818 Encounter for other preprocedural examination (principal)

== ENCOUNTER 2021-05-28 02:46 | Inpatient (IN) | payer BC ==
[2021-05-28] VITALS (13 sets, daily range): BP systolic 89–125; BP diastolic 31–75
[~2021-05-28] VITALS: Ht 180.4 cm; Wt 80.0 kg
[~2021-05-28 02:46] MED LIST changes: +NORE0.3520 PO
[2021-05-28 03:09] LABS: BILIRUBIN,URINE NEGATIVE (NEGATIVE); CLARITY,URINE CLEAR; COLOR,URINE YELLOW; GLUCOSE, URINE (UA) NEGATIVE (NEGATIVE); KETONES,URINE NEGATIVE (NEGATIVE); LEUKOCYTE ESTERASE ,URINE NEGATIVE (NEGATIVE); NITRITE,URINE NEGATIVE (NEGATIVE); PH,URINE 6.5 (5-9); PROTEIN,URINE NEGATIVE (NEGATIVE)
[2021-05-28 03:23] LABS: BACTERIA,URINE TRACE /HPF
[2021-05-28] MEDS ORDERED: metroNIDAZOLE 500MG/100ML IVPB 100 ML ONE (03:26)
[2021-05-28] MEDS ORDERED: ceFAZolin 2 GM IV Premixed 50 ML ONE (03:26)
[2021-05-28] MEDS ORDERED: CITRIC ACID/SOB CIT (BICITRA) 30 ML UDC ONE (03:26)
[2021-05-28] MEDS ORDERED: FAMOTIDINE 20MG/2ML IV (PEPCID) ONE (03:27)
[2021-05-28] MEDS ORDERED: METOCLOPRAMIDE INJ 10 MG/2 ML (REGLAN) ONE (03:27)
[2021-05-28] MEDS ORDERED: LACTATED RINGERS 1,000 ML IV PRN ×2 (03:30)
[2021-05-28] MEDS ORDERED: METOCLOPRAMIDE INJ 10 MG/2 ML (REGLAN) IV ONE (03:30)
[2021-05-28] MEDS ORDERED: ceFAZolin 2 GM IV Premixed 50 ML IV ONE (03:30)
[2021-05-28] MEDS ORDERED: CITRIC ACID/SOB CIT (BICITRA) 30 ML UDC PO ONE (03:30)
[2021-05-28] MEDS ORDERED: D5 LR IV SOLUTION 1,000 ML IV SCH ×3 (03:30→05:00)
[2021-05-28] MEDS ORDERED: FAMOTIDINE 20MG/2ML IV (PEPCID) IV ONE (03:30)
[2021-05-28] MEDS ORDERED: ceFAZolin INJECTION 2,000 MG in WATER (STERILE) FOR INJECTION 10 ML IV ONE (03:30)
[2021-05-28] MEDS ORDERED: metroNIDAZOLE 500MG/100ML IVPB 100 ML IV ONE ×2 (03:30)
[2021-05-28] MEDS ORDERED: CATHETER FLUSH 10 ML SYR IV PRN (03:30)
--- NOTE | 2021-05-28 03:30 | History & Physical ---
History and Physical Date Seen by Provider: May 28, 2021 Time Seen by Provider: 03:26 This patient is a 30-year-old female currently at 36 and 6/7 weeks gestationWho presented with complaint of spontaneous rupture membranes.She is having contractionsAbout every 7 to 10 minutes. She reports clear fluidLess than 1 hour before presentationLabor and delivery.She did have a negative GBS culture after 35 weeks gestation. She is planning a repeat delivery for the her delivery Allergies are none Medications are vitamins Medical social and surgical history is all per the antepartum record HEENT exam is normal Neck is supple no lymphadenopathy no thyromegaly Abdomen is gravid soft nontender nondistended. Patient has a palpable umbilical hernia of approximately2 cm Extremities show no clubbing or cyanosis. There is no Homans' sign. Pelvic exam is deferred. Patient is grossly ruptured Assessment and plan 36-6/7 weeks gestation with spontaneous rupture membranes and previous . In addition patient has a umbilical hernia. Plan is for admission now for repeat delivery and herniorrhaphy. Surgical risk complications recovery and follow-up have been fully discussed. 36-6/7 weeks gestation with previous C-sectionAnd with rupture membrane Allergies and Home Medications Allergies Coded Allergies: No Known Drug Allergies (Unverified , 01/25/20) Home Medications Norethindrone 0.35 Mg Tablet, 0.35 MG PO DAILY, (Reported) Patient Home Medication List Home Medication List Reviewed: Yes MACO AC MD May 28, 2021 03:30
[2021-05-28] MEDS ORDERED: NORE0.3520 PO (03:38)
[2021-05-28] MEDS ORDERED: OXYC1TAB12 PO (03:38)
[2021-05-28] MEDS ORDERED: IBUP-1780 PO (03:38)
[2021-05-28] MEDS ORDERED: DOCU-143 PO (03:38)
[2021-05-28 03:41] LABS: BASOPHILS % (AUTO) 0 % (0-10); EOSINOPHILS # (AUTO) 0.1 10^3/uL (0.0-0.3); EOSINOPHILS % (AUTO) 1 % (0-10); HEMATOCRIT 38 % (35-52); LYMPHOCYTES # (AUTO) 2.1 10^3/uL (1.0-4.0); LYMPHOCYTES % (AUTO) 26 % (12-44); MEAN CORPUSCULAR HEMOGLOBIN 32 pg (25-34); MEAN CORPUSCULAR HGB CONC 34 g/dL (32-36); MEAN CORPUSCULAR VOLUME 92 fL (80-99); MEAN PLATELET VOLUME 10.2 fL (9.0-12.2); MONOCYTES # (AUTO) 0.6 10^3/uL (0.0-1.0); MONOCYTES % (AUTO) 7 % (0-12); NEUTROPHILS # (AUTO) 5.4 10^3/uL (1.8-7.8); NEUTROPHILS % (AUTO) 65 % (42-75); PLATELET COUNT 232 10^3/uL (130-400); WHITE BLOOD COUNT 8.3 10^3/uL (4.3-11.0)
--- NOTE | 2021-05-28 03:43 | Discharge Inst-Surgical ---
Discharge Inst-Surgical Depart Medication/Instructions New, Converted or Re-Newed RX: Transmitted to Pharmacy Consults/Follow Up Patient Instructions: As directed Orders & Referrals Follow Up Appt: RTC 1 week for incision check. Call to make follow up appt. for patient in 4 to 6 weeks. Wound Care: Remove german, apply benzoin and steri strips. Activity Per routine post instructions. Diet as tolerated Patient may shower or tub bathe as desired. Continue home meds Activity Activity as Tolerated: No Diet Discharge Diet: No Restrictions MACO AC MD May 28, 2021 03:43
[2021-05-28] MEDS ORDERED: KETAMINE SYRINGE 50 MG/5 ML SYRINGE ONE (03:57)
[2021-05-28] MEDS ORDERED: fentaNYL INJ 100 MCG/2 ML AMP ONE (03:57)
[2021-05-28] MEDS ORDERED: OXYTOCIN PRE-MIX DRIP 500 ML IV ONE ×2 (04:21→08:41)
[2021-05-28] MEDS ORDERED: KETOROLAC 30 MG/ML VIAL ONE (04:37)
[2021-05-28] MEDS ORDERED: BUPIVACAINE 0.5% 30 ML (SENSORCAINE) VIAL ONE (04:43)
[2021-05-28] MEDS: KETOROLAC 30 MG/ML VIAL IVP SCH ×3 (04:45→18:06)
[2021-05-28] MEDS ORDERED: ONDANSETRON 4 MG/2 ML (SDV) Z0FRAN IVP PRN (05:00)
[2021-05-28] MEDS ORDERED: OXYTOCIN PRE-MIX DRIP 500 ML IV SCH (05:00)
[2021-05-28] MEDS ORDERED: TETANUS,DIPTH,PERTUSS P/F (BOOSTRIX) 0.5 ML VIAL IM ONE (05:00)
[2021-05-28] MEDS ORDERED: MEASLES,MUMPS,RUBELLA 1 EA INJ SC ONE (05:00)
[2021-05-28] MEDS ORDERED: fentaNYL INJ 100 MCG/2 ML AMP IVP PRN (05:00)
[2021-05-28] MEDS: DOCUSATE SODIUM 100 MG (COLACE) CAP PO SCH ×2 (07:56→20:22)
[2021-05-28] MEDS: oxyCODONE/APAP 10/325MG (PERCOCET 10) TABLET PO PRN ×4 (07:57→20:23)
[2021-05-28] MEDS ORDERED: DOCUSATE SODIUM 100 MG (COLACE) CAP PO SCH (09:00)
--- NOTE | 2021-05-28 15:35 | OPERATIVE REPORT ---
DATE OF SERVICE: 05/28/2021 PREOPERATIVE DIAGNOSES: A 36 and 6/7 weeks' gestation with PPROM and previous and with an umbilical hernia. POSTOPERATIVE DIAGNOSES: A 36 and 6/7 weeks' gestation with PPROM and previous and with an umbilical hernia. OPERATIVE PROCEDURE: Repeat low transverse delivery of a viable male with Apgars of 9 and 9 at 1 and 5 minutes respectively, a weight of 8 pounds, time of 0429 and a cord blood pH is pending as well as umbilical herniorrhaphy. OPERATIVE DESCRIPTION: With the patient in supine position under satisfactory spinal analgesia, she was prepped and draped in the usual fashion for abdominal surgery. Escobar catheter was placed in the urinary bladder. A repeat Pfannenstiel incision made through the skin with scalpel by removing the patient's previous Pfannenstiel incisional scar. The abdomen was then entered in the usual manner. Bladder retractor placed in position, clean scalpel used to make a 4 cm arthrotomy incision transversely across the lower uterine segment. Scant fluid was released on hysterotomy. A vigorous viable male was delivered via the uterine incision. had Apgars and stats as noted above. The was bulb suctioned on delivery of the head and again on completion of delivery. Umbilical cord was doubly clamped and cut and the infant passed to the pediatric nurse in attendance for the delivery. Cord bloods were obtained. The placenta delivered spontaneously [place]. It was normal with a 3-vessel cord. The uterus was exteriorized and interior wiped clean with a wet laparotomy sponge. Uterine incision then closed with running locked suture of 2-0 Vicryl. Hemostasis was complete. The uterus was returned to abdominal cavity. All blood clot and debris removed from the abdominal cavity. With sponge and needle counts correct and hemostasis assured, anterior parietal peritoneum was closed with running suture of 2-0 Vicryl. Rectus muscles were closed with that suture as well. The rectus fascia was closed with 2-0 Vicryl, subcutaneous tissue was closed with 2-0 Vicryl and the skin was stapled. Sponge and needle counts were correct on completion of the procedure. At this point, the umbilicus was exposed. An incision was made 3 cm transversely across the umbilicus. The fascia was exposed. There was a defect of approximately centimeter half transversely noted in the fascia as well. The defect was closed with a running locked suture of 2-0 Vicryl suture. The skin was then closed with nylon sutures. Sponge and needle counts were again correct. Blood loss was around 200 mL for the entire procedure. The patient tolerated the procedure well and was transferred to recovery in stable condition. The had been taken stable to the full term nursery under the care of the pediatric nurse. Job ID: [id number] DocumentID: [id number] Dictated Date: 05/28/2021 07:27:42 Engagement Manager Date: 05/28/2021 12:15:08 Dictated By: MACO AC MD
[2021-05-29] MEDS: KETOROLAC 30 MG/ML VIAL IVP SCH (00:14)
[2021-05-29 00:18] VITALS: BP 107/71
[2021-05-29 05:43] VITALS: BP 114/75
[2021-05-29] MEDS: IBUPROFEN 800 MG (MOTRIN) TAB PO SCH ×3 (06:36→18:10)
[2021-05-29 08:15] VITALS: BP 105/60
[2021-05-29] MEDS: DOCUSATE SODIUM 100 MG (COLACE) CAP PO SCH (08:17)
[2021-05-29] MEDS: oxyCODONE/APAP 10/325MG (PERCOCET 10) TABLET PO PRN ×3 (08:17→23:27)
[2021-05-29] MEDS: SIMETHICONE 80 MG (MYLICON) CHEW PO PRN ×3 (09:17→19:56)
--- NOTE | 2021-05-29 09:45 | Postpartum Progress Note ---
Note Note Day # 1 Subjective: Patient is without complaints. Ambulating, voiding. Tolerating a regular diet without nausea or vomiting. Normal lochia. Pain is well controlled with oral pain medications. Objective: Physical Exam: General - Alert and oriented, no apparent distress Abdomen - Soft, appropriately tender to palpation, non-distended, fundus firm at umbilicus Extremities - no edema, negative Sharlene's bilaterally Assessment: Post- day # 1, status post RLTCS. Recovering well, hemodynamically stable Acute blood loss anemia Plan: Routine care. Encourage breast feeding. Encourage ambulation. Ferrous sulfate supplementation. Plan for discharge tomorrow, 05/30 Vitals - Labs Vital Signs - I&O Vital Signs Date Time Temp Pulse Resp B/P (MAP) Pulse Ox O2 Delivery O2 Flow Rate FiO2 05/29/21 08:15 37.1 71 18 105/60 (75) 98 Room Air 05/29/21 05:43 36.7 76 18 114/75 (88) 99 Room Air 05/29/21 00:18 36.7 68 18 107/71 (83) 98 Room Air 05/28/21 19:35 36.5 67 18 112/69 (83) 98 Room Air 05/28/21 16:00 36.7 62 18 110/59 (76) 97 Room Air 05/28/21 11:50 36.9 78 18 111/57 (75) 98 Room Air 05/28/21 10:00 36.4 65 16 116/69 (85) 97 Room Air I & O 05/29/21 07:00 Intake Total 3800 ml Output Total 4075 ml Balance -275 ml PATRICK FARRIS PRINTER SLOTTER OPERATOR May 29, 2021 09:45
[2021-05-29 13:00] VITALS: BP 113/71
--- NOTE | 2021-05-29 14:15 | Anesthesia-Regional Post-Op ---
Regional Patient Condition Mental Status: Alert, Oriented x3 Circulation: Same as Pre-Op Headache: Absent Sensation: Full Recovery Motor Block: Absent Post Op Complications Complications None Follow Up Care/Instructions Patient Instructions None needed. Anesthesia/Patient Condition Patient is doing well, no complaints, stable vital signs, no apparent adverse anesthesia problems. ELI BANG DO May 29, 2021 14:15
[2021-05-30 02:35] VITALS: BP 123/73
[2021-05-30] MEDS: IBUPROFEN 800 MG (MOTRIN) TAB PO SCH ×2 (02:37→08:58)
[2021-05-30] MEDS: oxyCODONE/APAP 10/325MG (PERCOCET 10) TABLET PO PRN ×2 (02:37→12:18)
[2021-05-30 06:36] VITALS: BP 105/55
[2021-05-30 08:30] VITALS: BP 111/67
[2021-05-30] MEDS: DOCUSATE SODIUM 100 MG (COLACE) CAP PO SCH (08:58)
--- NOTE | 2021-05-30 09:47 | Postpartum Progress Note ---
Note Note Day # 2 Subjective: Patient is without complaints. Ambulating, voiding. Tolerating a regular diet without nausea or vomiting. Normal lochia. Pain is well controlled with oral pain medications. Objective: Physical Exam: General - Alert and oriented, no apparent distress Abdomen - Soft, appropriately tender to palpation, non-distended, fundus firm at umbilicus Extremities - no edema, negative Sharlene's bilaterally Assessment: Post- day # 2, status post RTLCS. Recovering well, hemodynamically stable Acute blood loss anemia Plan: Routine care. Encourage breast feeding. Encourage ambulation. Ferrous sulfate supplementation. Plan for discharge today Vitals - Labs Vital Signs - I&O Vital Signs Date Time Temp Pulse Resp B/P (MAP) Pulse Ox O2 Delivery O2 Flow Rate FiO2 05/30/21 06:36 36.8 75 18 105/55 (72) 98 Room Air 05/30/21 02:35 36.6 96 18 123/73 (90) 96 Room Air 05/29/21 13:00 36.5 71 18 113/71 (85) 97 Room Air PATRICK FARRIS APRN May 30, 2021 09:47
[2021-05-30 13:25] VITALS: BP 111/67
== END 2021-05-30 13:25 | disposition home or self-care (01) | DRG 787 ==
LOC: WSo 02:46 → LDRP 02:47 → WSo 03:18 → LDRP 03:19
PROVIDERS: ADMIT Obstetrics & Gynecology; ATTEND Obstetrics & Gynecology
PROC: 0WQF0ZZ Repair Abdominal Wall, Open Approach (ICD-10-PCS; 2021-05-28)
PROC: 10D00Z1 Extraction of Products of Conception, Low, Open Approach (ICD-10-PCS; principal; 2021-05-28 04:04)
DX: O34.211 Maternal care for low transverse scar from previous cesarean delivery (principal); D62 Acute posthemorrhagic anemia; K42.9 Umbilical hernia without obstruction or gangrene; Z3A.36 36 weeks gestation of pregnancy; Z37.0 Single live birth; O90.81 Anemia of the puerperium; O42.013 Preterm premature rupture of membranes, onset of labor within 24 hours of rupture, third trimester
CPT/HCPCS: 36415; 81000; 85025; 86850; 86900; 86901; 94664; 99212